=== PATIENT | female | born 1990 | race Caucasian/White ===

== ENCOUNTER 2020-07-24 13:19 | Emergency (ER) | payer OTHER, SELFPAY ==
--- NOTE | ~2020-07-24 | XR_ITS ---
EXAMINATION: XR foot RT min 3V DATE: 07/24/2020 14:17 INDICATION: Medial right foot pain. TECHNIQUE: 4 views of right foot were obtained. COMPARISON: None. FINDINGS: Bone alignment is normal. No fracture. Joint spaces are well maintained. IMPRESSION: 1. Normal right foot. Reviewed, dictated and finalized at location A. IMPRESSION: 1. Normal right foot.
[2020-07-24 13:42] VITALS: BP 125/71; PULSE 105; RESP 18; TEMP 36.5; O2SAT 100
--- NOTE | 2020-07-24 14:22 | ED.GENADULT ---
HPI - General Adult General Chief complaint: Extremity Injury, Lower Stated complaint: RIGHT FOOT PAIN, THOMPSON Time Seen by Provider: 07/24/20 13:54 Source: patient Mode of arrival: ambulatory Limitations: no limitations History of Present Illness HPI narrative: Patient is a 30-year-old female who presents to emergency department for evaluation of right foot pain noting pain to the dorsal surface of the right foot. patient notes that she has shot up in her foot and was unsure as to maybe as to whether or not this was causing her pain patient denies any deformity redness swelling fever chills numbness tingling pain is worse with activity and movement denies any injury or trauma or similar occurrence in the past. Patient also notes history of migraine headaches and has been having a migraine and is currently out of her Fioricet patient notes she has not used methamphetamine for 1 week and believes that this may be attributed to withdrawal Related Data Allergies Allergy/AdvReac Type Severity Reaction Status Date / Time codeine Allergy Anxiety Verified 07/24/20 14:20 shellfish derived Allergy Anaphylaxis Verified 07/24/20 14:19 tramadol Allergy Anxiety Verified 07/24/20 14:19 ketorolac [From Toradol] AdvReac Blister Verified 07/24/20 14:18 Review of Systems Review of Systems: All systems reviewed & are unremarkable except as noted in HPI and below PMFSH Past Medical History Medical History (Updated 07/24/20 @ 14:25 by Edwin Gu PA-C) IV drug abuse Methamphetamine use Social History Social History (Updated 07/24/20 @ 14:24 by Edwin Gu PA-C) Substance use type: amphetamines Exam Narrative: Exam Narrative: GENERAL: Well-appearing, well-nourished, and in no acute distress. HEAD: Normocephalic, atraumatic. EYES: PERRLA and EOMI. ENT: Nares clear, no rhinorrhea or epistaxis. Mucous membranes moist. CHEST: Clear to auscultation. No respiratory distress. No wheezes rales or rhonchi HEART: Regular rate and rhythm. No murmur heard. EXTREMITIES: Normal range of motion. No edema. Tenderness of the dorsal surface of the right foot no deformities noted SKIN: Warm, dry, no rash. NEURO: No focal deficits. Alert and oriented x3. PSYCH: Normal mood and affect. Course Course Emergency Course: Patient in the room in no distress aware of case findings treatment plan diagnosis Vital Signs Vital signs: Vital Signs Temperature 97.7 F 07/24/20 13:42 Pulse Rate 105 H 07/24/20 13:42 Respiratory Rate 18 07/24/20 13:42 Blood Pressure 125/71 07/24/20 13:42 Pulse Oximetry 100 07/24/20 13:42 Temperature 97.7 F 07/24/20 13:42 Pulse Rate 105 H 07/24/20 13:42 Respiratory Rate 18 07/24/20 13:42 Blood Pressure 125/71 07/24/20 13:42 Pulse Oximetry 100 07/24/20 13:42 Medical Decision Making MDM Narrative Medical decision making narrative: Patients injury or pain is consistent with musculoskeletal etiology. No signs of neurological or vascular compromise on exam. Compartments and tisues are soft without signs of compartment syndrome. Pain is felt appropriate for further evaluation on an outpatient basis. Vital Signs Vital Signs: Vital Signs Temperature 97.7 F 07/24/20 13:42 Pulse Rate 105 H 07/24/20 13:42 Respiratory Rate 18 07/24/20 13:42 Blood Pressure 125/71 07/24/20 13:42 Pulse Oximetry 100 07/24/20 13:42 Temperature 97.7 F 07/24/20 13:42 Pulse Rate 105 H 07/24/20 13:42 Respiratory Rate 18 07/24/20 13:42 Blood Pressure 125/71 07/24/20 13:42 Pulse Oximetry 100 07/24/20 13:42 Discharge Plan Discharge Clinical Impression: Acute pain of right foot, Migraine Patient Disposition: Home, Self-Care Condition: Stable Instructions: Antibiotic Form, Arthralgia (ED) Additional Instructions: Follow up with your primary care doctor in 5-7 days for re-evaluation. Go to ER for worsening pain, vision changes, nausea/vomiting, fever/chills, weakne
[2020-07-24 15:03] VITALS: BP 120/70; PULSE 80; RESP 17; TEMP 36.7; O2SAT 99
== END 2020-07-24 15:13 | disposition home or self-care (01) ==
PROVIDERS: Emergency Provider Emergency Medicine
DX: M79.671 Pain in right foot (principal); G43.909 Migraine, unspecified, not intractable, without status migrainosus
CPT/HCPCS: 73630; 99283; A9270